=== PATIENT | female | born 1985 | race Hispanic/Latino ===

== ENCOUNTER 2021-05-26 13:09 | Emergency (ER) | payer OTHER ==
[2021-05-26 16:18] LABS: Urine Blood Negative (Negative); Urine Glucose Negative (Negative); Urine Protein Negative (Negative); Urine Specific Gravity >=1.030 (1.005-1.030)
[2021-05-26 17:04] LABS: Urine Bacteria 20-50 /HPF (<20); Urine RBC <5 /HPF (NONE SEEN)
[2021-05-26 17:05] LABS: Urine Specific Gravity/Preg >1.030 (1.005-1.030)
[2021-05-26 17:11] LABS: Absolute Lymphocytes (CBC) 2.3 K/uL (0.7-4.9); Hematocrit 40.6 % (36.0-45.0); Lymphocytes % 23.6 % (15.3-44.8); MPV 6.8 fL (7.6-11.3); RBC Red Blood Cell Count 4.92 M/uL (3.86-4.86)
[2021-05-26 17:27] LABS: BUN Blood Urea Nitrogen 14 mg/dL (7-18); Bicarbonate 24 mmol/L (21-32); Glucose Level 92 mg/dL (74-106); HCG, Quantitative 151 mIU/mL (1-3); Potassium 3.9 mmol/L (3.5-5.1); Sodium Level 136 mmol/L (136-145)
--- NOTE | 2021-05-26 17:55 | ER ---
Nurse's Notes [facility] Name: Greta Bradley Age: 36 yrs Sex: Female : 1985 Arrival Date: 05/26/2021 Time: 13:31 Bed 18 Private MD: Diagnosis: Threatened Presentation: 05/26 13:31 Chief complaint: Patient states: + UPT Tuesday. Pt reports she feels a tender bump to LLQ since yesterday. Also suprapubic pressure when voiding. Coronavirus screen: Client denies travel out of the [place] in the last 14 days. Ebola Screen: Patient denies exposure to infectious person. No symptoms or risks identified at this time. Initial Sepsis Screen: Does the patient meet any 2 criteria? No. Patient's initial sepsis screen is negative. Does the patient have a suspected source of infection? No. Patient's initial sepsis screen is negative. Risk Assessment: Do you want to hurt yourself or someone else? Patient reports no desire to harm self or others. Onset of symptoms was May 25, 2021. 13:31 Method Of Arrival: Ambulatory 13:31 Acuity: ROGER 3 ss Triage Assessment: 13:55 General: Appears in no apparent distress. Behavior is calm, cooperative, appropriate ap3 for age. Pain: Complains of pain in abdomen Pain radiates to chest Quality of pain is described as burning. Neuro: Level of Consciousness is awake, alert, obeys commands, Oriented to person, place, time, situation. Cardiovascular: Patient's skin is warm and dry. Respiratory: Airway is patent Respiratory effort is even, unlabored, Respiratory pattern is regular, symmetrical. GI: Reports lower abdominal pain, upper abdominal pain, indigestion, nausea. 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 - Social history:: Smoking status: Patient denies any tobacco usage or history of. Screenin:55 Abuse screen: Denies threats or abuse. Nutritional screening: No deficits noted. ap3 Tuberculosis screening: No symptoms or risk factors identified. 16:00 Fall Risk None identified. bp Assessment: 16:00 General: SEE TRIAGE NOTE. bp 18:00 Reassessment: PT D/C HOME AMBULATORY, DX WITH THREATENED MISCARRIAGE. bp Vital Signs: 13:32 Pulse 85; Resp 15; Temp 98.8(TE); Pulse Ox 98% on R/A; Weight 119.29 kg; Height 5 ft. 7 ss in. (170.18 cm); Pain 6/10; 13:39 BP 134 / 92; ss 16:00 BP 107 / 71; Pulse 77; Resp 16; Pulse Ox 98% ; bp 18:00 BP 117 / 69; Pulse 68; Resp 17; Temp 98; Pulse Ox 97% ; bp 13:32 Body Mass Index 41.19 (119.29 kg, 170.18 cm) ss ED Course: 13:31 Patient arrived in ED. ss 13:32 Triage completed. ss 13:32 Arm band placed on right wrist. ss 15:55 Loren Powell FNP-C is [facility]. kb 15:55 Dorita De La Garza MD is Attending Physician. kb 16:00 Kamran Serrano, RAY is Primary Nurse. bp 16:00 Patient has correct armband on for positive identification. Bed in low position. Call bp light in reach. Side rails up X2. 16:40 Urine Microscopic Only Sent. mh5 16:40 Urine collected: clean catch specimen, cloudy. mh5 16:46 Inserted saline lock: 20 gauge in right forearm, using aseptic technique. Blood bp collected. 17:54 US Transvaginal Ob In Process Unspecified. EDMS 18:00 No provider procedures requiring assistance completed. IV discontinued, intact, bp bleeding controlled, No redness/swelling at site. Pressure dressing applied. Administered Medications: No medications were administered Outcome: 17:55 Discharge ordered by . kb 18:00 Discharged to home ambulatory. bp 18:00 Condition: stable 18:00 Discharge instructions given to patient, Instructed on discharge instructions, follow up and referral plans. Demonstrated understanding of instructions, follow-up care. 18:01 Patient left the ED. bp Signatures: Dispatcher [employer] EDIN Loren Powell FNP-C FNP-Ckb Smirch, Shelby, RN RN Rowena Mcnamara [facility] Kamran Serrano RN RN bp Zunilda Verde RN RN ap3 Corrections: (The following items were deleted from the chart) 13:38 13:32 Pulse 85bpm; Resp 15bpm; Temp 98.8F Temporal; 119.29 kg; Height 5 ft. 7 in.; BMI: ss 41.1; Pain 6/10; ss
--- NOTE | 2021-05-26 17:56 | EDPHYS ---
Physician Documentation [facility] Name: Greta Bradley Age: 36 yrs Sex: Female : 1985 Arrival Date: 05/26/2021 Time: 13:31 Bed 18 Private MD: ED Physician Dorita De La Garza HPI: 05/26 17:29 This 36 yrs old Female presents to ER via Ambulatory with complaints of kb Abdominal Pain. 17:29 The patient presents to the emergency department with abdominal pain, of the left lower kb quadrant, that started 4 day(s) ago. course: care: none. Previous pregnancies: in previous pregnancies patient has had. Associated signs and symptoms: Pertinent positives: abdominal pain, Pertinent negatives: vaginal bleeding. The patient has not experienced similar symptoms in the past. The patient has not recently seen a physician. 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 - Social history:: Smoking status: Patient denies any tobacco usage or history of. ROS: 17:29 Constitutional: Negative for fever, chills, and weight loss. kb 17:29 Abdomen/GI: Positive for abdominal pain, Negative for nausea, vomiting, and diarrhea. 17:29 All other systems are negative. Exam: 17:29 Constitutional: This is a well developed, well nourished patient who is awake, alert, kb and in no acute distress. Head/Face: Normocephalic, atraumatic. ENT: Moist Mucous membranes Cardiovascular: Regular rate and rhythm with a normal S1 and S2. No gallops, murmurs, or rubs. No pulse deficits. Respiratory: Respirations even and unlabored. No increased work of breathing. Talking in full sentences Skin: Warm, dry with normal turgor. Normal color. MS/ Extremity: Pulses equal, no cyanosis. Neurovascular intact. Full, normal range of motion. Neuro: Awake and alert, GCS 15, oriented to person, place, time, and situation. Moves all extremities. Normal gait. Psych: Awake, alert, with orientation to person, place and time. Behavior, mood, and affect are within normal limits. 17:29 Abdomen/GI: Inspection: abdomen appears normal, Bowel sounds: normal, in all quadrants, Palpation: soft, in all quadrants, mild abdominal tenderness, in the left lower quadrant. Vital Signs: 13:32 Pulse 85; Resp 15; Temp 98.8(TE); Pulse Ox 98% on R/A; Weight 119.29 kg; Height 5 ft. 7 ss in. (170.18 cm); Pain 6/10; 13:39 BP 134 / 92; ss 16:00 BP 107 / 71; Pulse 77; Resp 16; Pulse Ox 98% ; bp 18:00 BP 117 / 69; Pulse 68; Resp 17; Temp 98; Pulse Ox 97% ; bp 13:32 Body Mass Index 41.19 (119.29 kg, 170.18 cm) ss MDM: 15:55 Patient medically screened. kb 17:28 Data reviewed: vital signs, nurses notes. Data interpreted: Pulse oximetry: on room air kb is 98 %. Interpretation: normal. 17:48 Counseling: I had a detailed discussion with the patient and/or guardian regarding: the kb historical points, exam findings, and any diagnostic results supporting the discharge/admit diagnosis, lab results, radiology results, the need for outpatient follow up, a family practitioner, to return to the emergency department if symptoms worsen or persist or if there are any questions or concerns that arise at home. 17:53 ED course: US tech gave verbal reports, unable to visualize any findings. Pt kb educated on the possibility of this being too early to see anything vs miscarriage vs ectopic. Pt given strict return precautions and educated on need for repeat quantitative HCG in 2 days as well as repeat US in a week. Verbal understanding received. . 05/26 15:55 Order name: Basic Metabolic Panel; Complete Time: 17:28 kb 05/26 15:55 Order name: CBC with Diff; Complete Time: 17:12 kb 05/26 15:55 Order name: Quantitative Hcg; Complete Time: 17:28 kb 05/26 16:18 Order name: Urine Dipstick-Ancillary; Complete Time: 16:19 EDMS 05/26 16:20 Order name: Urine Microscopic Only; Complete Time: 17:08 kb 05/26 15:55 Order name: IV Saline Lock; Complete Time: 16:45 kb 05/26 15:55 Order name: Labs collected and sent; Complete Time: 16:45 kb 05/26 15:55 Order name: NPO; Complete Time: 16:26 kb 05/26 15:55 Order name: Urine Dipstick-Ancillary (obtain specimen); Complete Time: 16:26 kb 05/26 15:55 Order name: Urine Test (obtain specimen); Complete Time: 16:26 kb 05/26 16:25 Order name: Urine --Ancillary (enter results); Complete Time: 17:08 bd 05/26 16:45 Order name: US Transvaginal Ob kb 05/26 17:05 Order name: Urine Culture EDMS Administered Medications: No medications were administered Disposition Summary: 05/26/21 17:55 Discharge Ordered Location: Home kb Condition: Stable kb Diagnosis - Threatened kb Followup: kb - With: Emergency Department - When: As needed - Reason: Worsening of condition Followup: kb - With: Private Physician - When: 2 - 3 days - Reason: Recheck today's complaints, Continuance of care, Re-evaluation by your physician Discharge Instructions: - Discharge Summary Sheet kb - Abdominal Pain During , [id number] kb - Threatened Miscarriage, [id number] kb Forms: - Medication Reconciliation Form kb - Thank You Letter kb - Antibiotic Education kb - Prescription Opioid Use kb Signatures: Dispatcher [employer] EDMS Loren Powell, TACOSC DEVON-Cait Brar Shelby, RN RN ss
--- NOTE | 2021-05-26 18:02 | RAD REPORT ---
EXAM DESCRIPTION: US - Transvaginal OB - 05/26/2021 5:54 pm CLINICAL HISTORY: ABD PAIN, , beta HCG 100 COMPARISON: No comparisons FINDINGS: No intrauterine gestational sac or sac remnant identified at this time. Endometrial stripe is 6 mm with no hematoma or mass in the true cavity. Trace amount of fluid is present in the cervica l canal. Small nabothian cysts are present. Both ovaries are identified and blood flow is seen within each ovary. No mass suspicious for an ectop ic seen. There is a 3.2 centimeter anechoic right ovarian cyst likely corpus luteum. No abn ormal blood or fluid in the cul de sac. IMPRESSION: No intrauterine gestational sac or sac remnant. No hematoma or other significant finding within the endometrial cavity. No adnexal abnormality to suspect ectopic . Repeat sonography can be performed as warranted if serial beta HCG values support ongoing .
[2021-05-26 19:57] VITALS: BP 117/69; TEMP 98; O2SAT 97
== END 2021-05-26 18:01 | disposition home or self-care (01) ==
LOC: ER 13:09
DX: O20.0 Threatened abortion (principal)
CPT/HCPCS: 36415; 76817; 80048; 81003; 81015; 81025; 84702; 85025; 87086; 87088; 99283